=== PATIENT | female | born 1975 | race Caucasian/White ===

== ENCOUNTER 2019-02-06 09:47 | Emergency (ER) | payer MEDICAID ==
[~2019-02-06] VITALS: Ht 175.3 cm; Wt 90.7 kg
[2019-02-06 10:01] VITALS: BP 103/58
--- NOTE | 2019-02-06 10:43 | NUR ---
[facility] TO THE ED FOR BEHAVIORAL. PER AMBULANCE PERSONNEL, THEY FOUND PT ON THE FLOOR CRYING. PT HAS CHRONIC B/L LEG PAIN. C/O PAIN 05/27. UNABLE TO GET INFORMATION FROM THE PT CURRENTLY. PT AAO X4, GCS 15, ABLE TO SPEAK WITH FULL COMPLETE SENTENCES WITH SLOW RESPONSE. PT ADMITTED SHE CONSUMED ALCOHOL TODAY. RESPIRATIONS EVEN AND UNLABORED, BL LUNG CLEAR. SKIN WARM/PINK/DRY, +PMSC. ABDOMEN SOFT, NON DISTENDED. VSS, NO ACUTE DISTRESS AT THIS TIME. WILL CONTINUE TO MONITOR
--- NOTE | 2019-02-06 11:26 | NUR ---
Patient transferred to bed 3 via wheelchair by caroline. RN re-evaluating patient at bedside.
--- NOTE | 2019-02-06 11:37 | NUR ---
Dr. Ghosh is evaluating the patient at bedside.
[2019-02-06] MEDS ORDERED: NACL 0.9% 1,000 ML IV ONE (11:55)
--- NOTE | 2019-02-06 12:33 | NUR ---
Patient returned from XRAY/CT scan. RN re-evaluating patient at bedside.
[2019-02-06 12:48] LABS: APPEARANCE,URINE CLEAR (CLEAR); BLOOD, URINE TRACE (NEGATIVE); COLOR,URINE YELLOW (YELLOW); UGLUCOSE NEGATIVE (NEGATIVE)
[2019-02-06 12:49] LABS: BILIRUBIN,URINE NEGATIVE (NEGATIVE); LEUKOCYTE ESTERASE ,URINE NEGATIVE (NEGATIVE); NITRITE, URINE NEGATIVE (NEGATIVE)
[2019-02-06 13:03] LABS: RBC,URINE 0-5 /HPF (0-5); WBC,URINE 0-5 /HPF (0-5)
[2019-02-06 13:08] LABS: BASOPHILS % (AUTO) 0.2 % (0.0-2.0); EOSINOPHILS # (AUTO) 0.1 K/uL (0-0.4); EOSINOPHILS % (AUTO) 3.5 % (0.0-4.0); HEMATOCRIT 46.2 % (36-48); HEMOGLOBIN 15.3 g/dL (12.0-16.0); LYMPHOCYTES # (AUTO) 1.4 K/uL (2.5-16.5); LYMPHOCYTES % (AUTO) 38.3 % (20.5-51.1); MEAN CORPUSCULAR HEMOGLOBIN 31 pg (27-31); MEAN CORPUSCULAR HGB CONC 33 g/dL (33-37); MEAN CORPUSCULAR VOLUME 95.1 fL (80-94); MONOCYTES # (AUTO) 0.5 K/uL (0.8-1.0); NEUTROPHILS # (AUTO) 1.6 K/uL (1.8-7.7); PLATELET COUNT (AUTO) 119 K/uL (140-450); RED BLOOD CELL COUNT(AUTO) 4.86 MIL/uL (4.20-5.40); RED CELL DISTRIBUTION WIDTH 15.4 % (11.6-13.7); WHITE BLOOD COUNT (AUTO) 3.6 K/uL (4.8-10.8)
--- NOTE | 2019-02-06 13:30 | NUR ---
PT RESTING IN BED, AROUSABLE TO VERBAL STIMULI
[2019-02-06 13:57] LABS: BARBITURATE, URINE NEGATIVE ng/ml (NEG <=200); BENZODIAZEPINE, URINE NEGATIVE ng/mL (NEG <=200); CANNABINOID, URINE NEGATIVE ng/mL (NEG <=50); COCAINE, URINE NEGATIVE ng/mL (NEG <=300); OPIATE, URINE NEGATIVE ng/mL (NEG <=2000); PHENCYCLIDINE SCREEN,URINE NEGATIVE ng/mL (NEG <=25)
[2019-02-06 14:01] LABS: CREATININE 0.9 mg/dL (0.6-1.3); GFR ARICAN-AMERICAN 87 mL/min (>90)
[2019-02-06 14:20] LABS: ANION GAP 19.1 (8-16); CARBON DIOXIDE 23.7 mmol/L (21-32); CHLORIDE 106 mmol/L (98-107); GLUCOSE 94 mg/dL (74-106); POTASSIUM 3.8 mmol/L (3.5-5.1); SODIUM SERUM 145 mmol/L (136-145)
[2019-02-06 14:21] LABS: UREA NITROGEN, BLOOD 6 mg/dL (7-18)
[2019-02-06 14:27] LABS: ACETAMINOPHEN < 0.5 ug/ml (10-30); ALBUMIN 4.2 g/dL (3.4-5.0); ASPARTATE AMINOTRANSFERASE 43 U/L (15-37); SALICYLATE < 2.8 mg/dL (2.8-20.0); TOTAL BILIRUBIN 0.6 mg/dL (0.0-1.0)
--- NOTE | 2019-02-06 15:00 | NUR ---
PT ASLEEP IN BED, NO NEW NEEDS AT THIS TIME.
[2019-02-06 16:24] VITALS: BP 118/64
--- NOTE | 2019-02-06 16:29 | NUR ---
PROVIDED PT WITH TAXI VOUCHER
--- NOTE | 2019-02-06 16:29 | NUR ---
Patient discharged with v/s stable. Written and verbal after care instructions given and explained. Patient verbalized understanding. Ambulatory with steady gait. All questions addressed prior to discharge. Advised to follow up with PMD.
== END 2019-02-06 16:29 | disposition home or self-care (01) ==
LOC: MED 09:47
DX: F10.129 Alcohol abuse with intoxication, unspecified (principal); Y90.9 Presence of alcohol in blood, level not specified; R42 Dizziness and giddiness
CPT/HCPCS: 36415; 70450; 71045; 80053; 80305; 81001; 81025; 84484; 85025; 93005; 96360; 99284; G0480; G0482; J7030; Q0092; 96361

== ENCOUNTER 2020-11-26 07:56 | Emergency (ER) | payer MEDICAID ==
[~2020-11-26] VITALS: Ht 165.1 cm; Wt 79.4 kg
--- NOTE | 2020-11-26 08:00 | NUR ---
PT BROUGHT IN BLS, PLACED IN WHEELCHAIR IN LOBBY
[2020-11-26 08:06] VITALS: BP 120/90
--- NOTE | 2020-11-26 08:58 | NUR ---
PT BROUGHT TO BED 6 VIA WHEELCHAIR
[2020-11-26] MEDS ORDERED: diphenhydrAMINE 50 MG CAP PO ONE (09:10)
[2020-11-26] MEDS ORDERED: ONDANSETRON 4 MG ODT PO ONE (09:10)
--- NOTE | 2020-11-26 09:20 | NUR ---
45/F presents to ED with c/o ithciness. Patient states she was seen here yesterday and given "unknown medication" and states "I think I am having an allergic reaction." Bruising noted to bilateral legs, patient denies pain, c/o itchiness. Patient denies nausea, vomiting, diarrhea, chest pain, fever, chills or sob.
[2020-11-26] MEDS ORDERED: PRED20TA5 PO (09:42)
[2020-11-26] MEDS ORDERED: BEN50 PO (09:42)
[2020-11-26] MEDS ORDERED: ONDA8TAB87 PO (09:42)
--- NOTE | 2020-11-26 10:20 | NUR ---
Patient discharged with v/s stable. Written and verbal after care instructions given and explained. Patient alert, oriented and verbalized understanding of instructions. Wheel Chair Assisted to LOBBY TO AWAIT RIDE. All questions addressed prior to discharge. ID band removed. Patient advised to follow up with PMD. Rx of BENADRYL, ZOFRAN AND PREDNISONE given. Patient educated on indication of medication including possible reaction and side effects. Opportunity to ask questions provided and answered.
== END 2020-11-26 10:20 | disposition home or self-care (01) ==
LOC: MED 07:56
DX: R21 Rash and other nonspecific skin eruption (principal); L29.9 Pruritus, unspecified
CPT/HCPCS: 81002; 81025; 99283; Q0162; Q0163